=== PATIENT | female | born 1985 | race American Indian/Alaskan Native ===

== ENCOUNTER 2016-09-11 19:42 | Emergency (ER) | payer OTHER ==
[2016-09-11 19:48] VITALS: BP 113/75; PULSE 71; RESP 17; TEMP 98.2; O2SAT 98
--- NOTE | 2016-09-11 20:10 | ED PDOC ---
Arrival/HPI - General Chief Complaint: Upper Extremity Problem/Injury Time Seen by Provider: 09/11/16 20:07 Historian: Patient - History of Present Illness Narrative History of Present Illness (Text): 09/11/16 20:46 30-year-old female presents today with a several month history of right arm pain. Patient states she was seen at [facility] for pain in the right arm a couple of months ago. Patient states she had x-rays and was given a muscle relaxer and was told that nothing was wrong with her arm. Patient states she is still having intermittent pain in the arm denies trauma or injury. Describes the pain as achy and throbbing. Patient denies numbness weakness or tingling in the extremity.she states the pain can radiate from the forearm into the mid upper arm. Denies neck pain. Time/Duration: > month (2-3months) Symptom Onset: Gradual Symptom Course: Unchanged Quality: Aching, Throbbing Severity Level: 3 Past Medical History - Provider Review Nursing Documentation Reviewed: Yes - Travel History Have you recently traveled outside [place] w/in the past 3 mons?: No - Tetanus Immunization Tetanus Immunization: Unknown - Cardiac Hx Cardiac Disorders: No - Pulmonary Hx Asthma: Yes - Neurological Hx Neurological Disorder: No - HEENT Hx HEENT Disorder: No - Renal Hx Renal Disorder: No - Endocrine/Metabolic Hx Endocrine Disorders: No - Hematological/Oncological Hx Blood Disorders: No - Integumentary Hx Dermatological Disorder: No - Musculoskeletal/Rheumatological Hx Musculoskeletal Disorders: No - Gastrointestinal Hx Gastrointestinal Disorders: No - Genitourinary/Gynecological Hx Genitourinary Disorders: No - Psychiatric Hx Psychophysiologic Disorder: No Hx Substance Use: No - Surgical History Hx Section: Yes Family/Social History - Physician Review Nursing Documentation Reviewed: Yes Family/Social History: Unknown Family HX Smoking Status: Heavy Smoker > 10 Cigarettes Daily Hx Alcohol Use: Yes Frequency of alcohol use: Socially Hx Substance Use: No Allergies/Home Meds Allergies/Adverse Reactions: Allergies No Known Allergies Allergy (Verified 09/11/16 19:44) Review of Systems - Review of Systems Constitutional: absent: Fatigue, Fevers Respiratory: absent: SOB, Cough Cardiovascular: absent: Chest Pain, Palpitations Gastrointestinal: absent: Abdominal Pain, Diarrhea, Nausea, Vomiting Genitourinary Female: absent: Dysuria, Frequency Musculoskeletal: Arthralgias (right arm pain). absent: Back Pain, Neck Pain Skin: absent: Rash, Pruritis Neurological: absent: Headache, Dizziness Psychiatric: absent: Anxiety, Depression Physical Exam Vital Signs Reviewed: Yes Vital Signs Temp Pulse Resp BP Pulse Ox 09/11/16 19:44 98.2 F 71 17 113/75 98 Temperature: Afebrile Blood Pressure: Normal Pulse: Regular Respiratory Rate: Normal Appearance: Positive for: Well-Appearing, Non-Toxic, Comfortable Pain Distress: None Mental Status: Positive for: Alert and Oriented X 3 - Systems Exam Head: Present: Atraumatic Neck: Present: Normal Range of Motion Respiratory/Chest: Present: Clear to Auscultation, Good Air Exchange. No: Respiratory Distress, Accessory Muscle Use Cardiovascular: Present: Regular Rate and Rhythm, Normal S1, S2. No: Murmurs Back: Present: Normal Inspection Upper Extremity: Present: Normal ROM, NORMAL PULSES, Tenderness (right arm; + minimal tenderness to light palpation over the dorsal forearm and dorsal upper arm; ), Neurovascularly Intact, Capillary Refill < 2s. No: Swelling, Erythema, Deformity Neurological: Present: GCS=15, Speech Normal Skin: Present: Warm, Dry, Normal Color. No: Rashes Psychiatric: Present: Alert, Oriented x 3 Medical Decision Making ED Course and Treatment: 09/11/16 20:48 Patient nontoxic well-appearing in no distress with stable vital signs Patient with 2-3 month history of right arm pain. Denies recent trauma or injury. Patient had x-rays edges [facility]. Patient has full range of motion of the arm no edema no erythema and no ecchymosis. Sensation and distal pulses are intact Toradol IM Onel wrap applied to the right forearm Patient was advised to take Motrin and muscle relaxer and follow-up with her orthopedist within the next 2 days. Patient verbalizes understanding of discharge instructions and need for immediate followup. Impression: arm pain Motrin every 6 hours as needed for pain flexeril; 1 tablet ever 8 hours as needed for muscle spasms; may cause drowsiness. Rest, ice, compression, elevation Followup with the orthopedist within the next 2 days Followup with primary care physician within the next 2 days Return if any other concerning symptoms develop - Medication Orders Current Medication Orders: Discontinued Medications Ketorolac Tromethamine (Toradol) 60 mg IM STAT STA Stop: 09/11/16 20:08 Last Admin: 09/11/16 20:23 Dose: 60 mg Disposition/Present on Arrival - Present on Arrival Any Indicators Present on Arrival: No History of DVT/PE: No History of Uncontrolled Diabetes: No Urinary Catheter: No History of Decub. Ulcer: No History Surgical Site Infection Following: None - Disposition Have Diagnosis and Disposition been Completed?: Yes Diagnosis: Arm pain Disposition: HOME/ ROUTINE Disposition Time: 20:08 Patient Plan: Discharge Patient Problems: Current Active Problems Problem Status Onset Arm pain Acute Condition: GOOD Discharge Instructions (ExitCare): Arm Pain (ED) Additional Instructions: Motrin every 6 hours as needed for pain Flexeril one tablet every 8 hours as needed for muscle spasms: May cause drowsiness rest,ice, compression, elevation Followup with the orthopedist within the next 2 days Followup with primary care physician within the next 2 days Return if symptoms worsen persist or if new symptoms develop Prescriptions: Cyclobenzaprine [Cyclobenzaprine HCl] 10 mg PO Q8 #10 tab Ibuprofen [Motrin] 600 mg PO Q6H PRN #20 tab PRN Reason: pain/fever reduction Referrals: Ady Hoffman MD [Staff Provider] - Follow up with primary [facility] [place] [Outside] - Follow up with primary Sam Velásquez MD [Staff Provider] - Follow up with primary Forms: WORK NOTE
== END 2016-09-11 20:45 | disposition home or self-care (01) ==
LOC: MERGE 19:42 → ED 19:42
DX: M79.601 Pain in right arm (principal)
CPT/HCPCS: 96372; 99282; J1885